=== PATIENT | male | born 1940 | race Caucasian/White ===

== ENCOUNTER 2021-12-15 18:51 | Emergency (ER) | payer MEDICARE, OTHER ==
[2021-12-15] MEDS ORDERED: Sodium Chloride 0.9% 10 ML Syringe FLUSH PRN (19:09)
[2021-12-15 20:35] LABS: ESTIMATED GFR 38 mL/min (>60)
[2021-12-15] MEDS ORDERED: Tamsulosin 0.4 MG Cap.ER PO ONE (21:19)
== END 2021-12-15 21:50 | disposition home or self-care (01) ==
LOC: JD.ED 18:51
DX: R33.9 Retention of urine, unspecified (principal); I10 Essential (primary) hypertension; Z79.899 Other long term (current) drug therapy
CPT/HCPCS: 36415; 51702; 80053; 81003; 85025; 86140; 99283; A9270

== ENCOUNTER 2022-02-03 22:38 | Emergency (ER) | payer MEDICARE, OTHER ==
[2022-02-03] MEDS ORDERED: Lidocaine 2% 11 ML Jelly Filled Syringe MUCMEM STA (23:34)
== END 2022-02-04 01:10 | disposition home or self-care (01) ==
LOC: JD.ED 22:38
DX: R33.9 Retention of urine, unspecified (principal)
CPT/HCPCS: 51702; 81001; 87086; 99284; A9270

== ENCOUNTER 2022-06-28 09:35 | Emergency (ER) | payer MEDICARE, OTHER ==
[2022-06-28] MEDS ORDERED: Lidocaine 2% 11 ML Jelly Filled Syringe MUCMEM ONE (09:58)
== END 2022-06-28 11:17 | disposition home or self-care (01) ==
LOC: JD.ED 09:35
DX: N30.00 Acute cystitis without hematuria (principal); R33.9 Retention of urine, unspecified; I25.10 Atherosclerotic heart disease of native coronary artery without angina pectoris; I10 Essential (primary) hypertension; I25.2 Old myocardial infarction; Z46.6 Encounter for fitting and adjustment of urinary device; Z95.5 Presence of coronary angioplasty implant and graft
CPT/HCPCS: 51702; 51798; 81001; 87086; 87088; 87186; 99283; A9270

== ENCOUNTER 2024-06-26 08:52 | Day surgery (SDC) | payer MEDICARE, OTHER ==
[2024-06-26] MEDS: Tetracaine HCl/PF 0.5% 4 ML Bottle EYEBOTH SCH (09:53)
[2024-06-26] MEDS: Lidocaine 1% PF 2 ML SDV INJECT SCH (09:53)
[2024-06-26] MEDS: Phenylephrine 2.5% Ophth Soln 2 ML Bot EYELF SCH (09:53)
[2024-06-26] MEDS: Pilocarpine 4% Ophth Soln 15 ML Bot EYELF SCH (09:53)
[2024-06-26] MEDS: Brimonidine 0.2% Ophth Soln 5 ML Bottle EYELF SCH (09:53)
[2024-06-26] MEDS: Cefuroxime 10 MG/ML SYRINGE EYELF SCH (09:53)
[2024-06-26] MEDS: Polymyxin B/Trimethoprim 10 ML Bottle EYELF SCH (09:54)
[2024-06-26] MEDS: Tropicamide 1% Ophth Soln 3 ML Bottle EYELF SCH (10:15)
== END 2024-06-26 12:08 | disposition home or self-care (01) ==
LOC: JD.SDS 08:52
PROVIDERS: ATTEND Ophthalmology
DX: H25.812 Combined forms of age-related cataract, left eye (principal); H21.81 Floppy iris syndrome; H21.42 Pupillary membranes, left eye; I10 Essential (primary) hypertension; I25.10 Atherosclerotic heart disease of native coronary artery without angina pectoris; Z95.5 Presence of coronary angioplasty implant and graft; N40.0 Benign prostatic hyperplasia without lower urinary tract symptoms; Z79.899 Other long term (current) drug therapy
CPT/HCPCS: 66982; A9270; J0697; J3490